=== PATIENT | male | born 1995 | race African-American/Black ===

== ENCOUNTER 2017-04-03 10:58 | Emergency (ER) | payer BC ==
[~2017-04-03] VITALS: Ht 195.6 cm; Wt 81.7 kg
[2017-04-03] MEDS ORDERED: ZOFRAN ODT4 MG PO (12:32)
[2017-04-03] MEDS ORDERED: IBUPROFEN 800800 M1 PO (12:32)
[2017-04-03] MEDS ORDERED: PROMETH-CODEIN 65 ML PO (12:32)
== END 2017-04-03 12:40 | disposition home or self-care (01) ==
LOC: ER 10:58
DX: J11.1 Influenza due to unidentified influenza virus with other respiratory manifestations (principal); F17.210 Nicotine dependence, cigarettes, uncomplicated; Z90.89 Acquired absence of other organs